=== PATIENT | female | born 1980 | race Caucasian/White ===

== ENCOUNTER 2017-08-17 17:31 | Emergency (ER) | payer OTHER ==
[2017-08-17 18:06] VITALS: BP 123/72; PULSE 83; RESP 18; TEMP 98.2
--- NOTE | 2017-08-17 18:39 | XR ---
EXAMINATION TYPE: XR ankle complete LT, XR foot complete LT DATE OF EXAM: 08/17/2017 CLINICAL HISTORY: Pain after falling injury TECHNIQUE: Frontal, lateral and oblique images of the left ankle and foot are obtained. COMPARISON: None. FINDINGS: There is no acute fracture/dislocation evident in the left ankle. The ankle mortise appea rs within normal limits. Some mild diffuse subcutaneous edema is present. There is no acute fracture or dislocation evident in the left foot. Some flexion in the toes is seen. There is accessory ossicle near the cuboid bone. There is tiny inferior calcaneal spur. Overlying so ft tissue shows mild soft tissue swelling diffusely. IMPRESSION: There is no acute fracture or dislocation in the left ankle or foot.
--- NOTE | 2017-08-17 19:07 | ED ---
General Adult HPI - General Chief complaint: Extremity Injury, Lower Stated complaint: Ankle Injury Time Seen by Provider: 08/17/17 18:57 Source: patient, RN notes reviewed Mode of arrival: ambulatory Limitations: no limitations - History of Present Illness Initial comments: Patient 36-year-old female presenting to the emergency room today with chief complaint of an injury to the left ankle that occurred yesterday. Patient states that she slipped on some steps yesterday and twisted the left ankle. Vision admits to pain with plantarflexion. Patient denies any other injury or complaint. Denies any head injury or loss conscious. Denies any recent fever or chills. Denies any chest pain, back pain, abdominal pain, numbness or tingling, headache. - Related Data Allergies Allergy/AdvReac Type Severity Reaction Status Date / Time No Known Allergies Allergy Verified 08/17/17 18:06 Review of Systems ROS Statement: Those systems with pertinent positive or pertinent negative responses have been documented in the HPI. ROS Other: All systems not noted in ROS Statement are negative. Past Medical History Past Medical History: Hypertension History of Any Multi-Drug Resistant Organisms: None Reported Past Surgical History: Section Past Psychological History: Depression Smoking Status: Never smoker Past Alcohol Use History: None Reported Past Drug Use History: None Reported General Exam - General Exam Comments Initial Comments: General: The patient is awake and alert, in no distress, and does not appear acutely ill. Neck: The neck is supple. Musculoskeletal: Patient does have normal appearance of the left ankle with no obvious deformity. She shows good range of motion slightly decreased -5-10 due to pain. Patient sensations are intact. Pulses 2+ bilaterally. No bony tenderness down to the left foot. Mildly tender over the medial malleolus. Neurological: A&O x 3. CN II-XII intact, There are no obvious motor or sensory deficits. Coordination appears grossly intact. Speech is normal. Skin: Skin is warm and dry and no rashes or lesions are noted. Psychiatric: Normal mood and affect. Limitations: no limitations Course Vital Signs 08/17/17 18:02 Temperature 98.2 F Pulse Rate 83 Respiratory 18 Rate Blood Pressure 123/72 O2 Sat by Pulse 97 Oximetry Medical Decision Making - Medical Decision Making X-rays are negative. Results were discussed with the patient. Patient given Aircast splint. Advised to follow-up with orthopedics in 7-10 days for symptoms persist for repeat x-rays. Disposition Clinical Impression: Ankle sprain Disposition: HOME SELF-CARE Condition: Good Instructions: Ankle Sprain (ED) Additional Instructions: Please use splint when up and moving around but do not sleep around. Please follow-up orthopedics in 7-10 days if symptoms persist for repeat x-rays. Please continue to ice elevate the affected area at least 4 times a day for 20 minutes at a time. Please continue ibuprofen for pain. Please return for any other concerns. Is patient prescribed a controlled substance at d/c from ED?: No Referrals: Grace Camacho MD [Primary Care Provider] - 1-2 days Time of Disposition: 19:03
== END 2017-08-17 19:19 | disposition home or self-care (01) ==
LOC: EC 17:31
DX: S93.402A Sprain of unspecified ligament of left ankle, initial encounter (principal); X50.1XXA Overexertion from prolonged static or awkward postures, initial encounter; W10.9XXA Fall (on) (from) unspecified stairs and steps, initial encounter
CPT/HCPCS: 99283